=== PATIENT | female | born 1955 | race Two or more races ===

== ENCOUNTER → 2024-06-14 | Emergency (ER) | payer OTHER ==
[~2024-06-14] VITALS: Ht 172.7 cm; Wt 70.3 kg
[~2024-06-14] MED LIST: ATORVASTATIN CA10 MG; BUPROPION XL450 MG; DULOXETINE HCL40 MG; ZESTORETIC 10-1 EACH
== END | disposition left against medical advice (07) ==
LOC: ER 15:21
DX: Z53.21 Procedure and treatment not carried out due to patient leaving prior to being seen by health care provider (principal)